=== PATIENT | male | born 1955 | race Caucasian/White ===

== ENCOUNTER 2018-03-14 22:19 | Emergency (ER) | payer MEDICAID ==
[~2018-03-14] VITALS: Ht 172.7 cm; Wt 72.6 kg
[2018-03-14 22:19] VITALS: BP 132/78
--- NOTE | 2018-03-14 22:19 | NUR ---
MAUDE MASON. TAKEN TO BED 1
--- NOTE | 2018-03-14 22:33 | NUR ---
PSYCH ASSESSMENT Per patient report Patient non compliant with psych medications for bipolar disorder for 6 months due to him being unable to afford medication. Patient does not admit to having thoughts of hurting himself or others. Patient alert and oriented x 4 however he states that he has on and off auditory and visual hallucinations. Auditory hallucinations consist of him hearing random voices. Visual hallucinations consist of him seeing crosses and swastickas. Patient admits hallucinations worsened after his left him 2 days ago.
--- NOTE | 2018-03-14 22:36 | NUR ---
Patient given orange juice
--- NOTE | 2018-03-14 23:20 | NUR ---
Patient in no acute distress on stretcher on monitor. Will continue to monitor closely.
--- NOTE | 2018-03-15 01:57 | NUR ---
Patient in no acute distress, on stretcher on monitor. No identified requests. Will continue to monitor closely.
--- NOTE | 2018-03-15 03:16 | NUR ---
Patient asleep on stretcher in no acute distress, no identified requests.
--- NOTE | 2018-03-15 04:15 | NUR ---
Patient in room asleep on stretcher in no acute distress, no identified requests.
[2018-03-15 06:11] VITALS: BP 130/60
--- NOTE | 2018-03-15 06:12 | NUR ---
Patient discharged with v/s stable. Written and verbal after care instructions given and explained. Patient alert, oriented and verbalized understanding of instructions. Ambulatory with steady gait. All questions addressed prior to discharge. ID band removed. Patient advised to follow up with PMD. Rx of SEROQUEL given. Patient educated on indication of medication including possible reaction and side effects. Opportunity to ask questions provided and answered.
== END 2018-03-15 06:12 | disposition home or self-care (01) ==
LOC: MED 22:19
DX: R44.0 Auditory hallucinations (principal); R44.1 Visual hallucinations; J44.9 Chronic obstructive pulmonary disease, unspecified
CPT/HCPCS: 99283

== ENCOUNTER 2018-04-17 15:32 | Emergency (ER) | payer MEDICAID ==
[~2018-04-17] VITALS: Ht 185.4 cm; Wt 82.6 kg
--- NOTE | 2018-04-17 15:39 | NUR ---
PT RIMA MASON AND SENT TO LOBBY
--- NOTE | 2018-04-17 15:45 | NUR ---
62 BIBA REQUESTING MEDICATION REFILL FOR SEROQUEL 50MG HS, LAMICTAL 200MG QD. PT DENIES ANY HI OR SI IDEATION. PT IS AOX4 BUT HYPERVERBAL. PT ALSO REPORTS OF 1ST DIGIT ON RIGHT FOOT PAIN. PT STS HE "HIT IT ON SOME HARD SHIT". RR ARE EVEN AND UNLABORED. VSS. AWAITING ER MD CORNELL. WILL CONTINUE TO MONITOR.
[2018-04-17 16:01] VITALS: BP 128/57
--- NOTE | 2018-04-17 16:30 | NUR ---
PATIENT STS "YOU GUYS ARE NOT GOING TO SEE ME, I HAVE TO GO WORK AT [employer] IN [place]"; INFORMED PATIENT ER MD DOCTOR WILL BE ABLE TO SEE HIM SOON HE CAN BUT ER MD AWARE OF PT. PT EXITED ER TO LOBBY WITH STEADY GAIT. ER MD RIVERA AND TURNER CHILDS RN MADE AWARE.
--- NOTE | 2018-04-17 16:30 | NUR ---
PT ELPD FROM FACILITY
== END 2018-04-17 16:30 | disposition left against medical advice (07) ==
LOC: MED 15:32
DX: Z76.0 Encounter for issue of repeat prescription (principal); Z53.21 Procedure and treatment not carried out due to patient leaving prior to being seen by health care provider

== ENCOUNTER 2018-05-28 22:55 | Emergency (ER) | payer SELFPAY ==
[~2018-05-28] VITALS: Ht 185.4 cm; Wt 82.6 kg
[2018-05-28 23:09] VITALS: BP 148/86
[2018-05-29] MEDS ORDERED: ARIPiprazole 10 MG TAB ONE (03:26)
[2018-05-29] MEDS ORDERED: ARIPiprazole 10 MG TAB PO ONE (03:55)
[2018-05-29 04:00] VITALS: BP 148/86
[2018-05-29] MEDS ORDERED: ONDANSETRON 4 MG ODT ONE (05:29)
[2018-05-29] MEDS ORDERED: ARIPiprazole 10 MG TAB PO SCH (09:00)
== END 2018-05-29 04:00 | disposition home or self-care (01) ==
LOC: MED 22:55
DX: R44.1 Visual hallucinations (principal); R44.0 Auditory hallucinations; Z88.0 Allergy status to penicillin; F17.210 Nicotine dependence, cigarettes, uncomplicated
CPT/HCPCS: 99282; S0119

== ENCOUNTER 2018-09-18 21:18 | Inpatient (IN) | payer SELFPAY ==
[~2018-09-18] VITALS: Ht 185.4 cm; Wt 77.1 kg
--- NOTE | 2018-09-18 21:18 | NUR ---
PT RIMA BLS. TAKEN TO BED 5
[2018-09-18 21:20] VITALS: BP 166/91
--- NOTE | 2018-09-18 21:35 | NUR ---
[place] [employer] AT BEDSIDE FOR 5150 HOLD.
--- NOTE | 2018-09-18 21:45 | NUR ---
PT AMBULATED TO BATHROOM EVEN STEADY GAIT, TO PROVIDE URINE SAMPLE
--- NOTE | 2018-09-18 22:02 | NUR ---
Dr. Ramírez evaluating patient at bedside.
--- NOTE | 2018-09-18 22:27 | NUR ---
PT IN BED SLEEPING, VSS.
--- NOTE | 2018-09-18 22:50 | NUR ---
LAB AT BEDSIDE
[2018-09-18 23:10] LABS: BASOPHILS % (AUTO) 0.5 % (0.0-2.0); EOSINOPHILS # (AUTO) 0.2 K/uL (0-0.4); EOSINOPHILS % (AUTO) 3.5 % (0.0-4.0); HEMATOCRIT 37.6 % (36-52); HEMOGLOBIN 12.4 g/dL (12.0-18.0); LYMPHOCYTES # (AUTO) 1.9 K/uL (2.0-11.5); LYMPHOCYTES % (AUTO) 30.1 % (20.5-51.1); MEAN CORPUSCULAR HEMOGLOBIN 29 pg (27-31); MEAN CORPUSCULAR HGB CONC 33 g/dL (33-37); MONOCYTES # (AUTO) 0.6 K/uL (0.8-1.0); NEUTROPHILS # (AUTO) 3.6 K/uL (1.8-7.7); NEUTROPHILS % (AUTO) 56.9 % (42.2-75.2); PLATELET COUNT (AUTO) 245 K/uL (140-450); RED BLOOD CELL COUNT(AUTO) 4.32 MIL/uL (4.20-6.10); RED CELL DISTRIBUTION WIDTH 15.9 % (11.6-13.7); WHITE BLOOD COUNT (AUTO) 6.3 K/uL (4.8-10.8)
[2018-09-18 23:15] LABS: ANION GAP 9.7 (8-16); CARBON DIOXIDE 29.9 mmol/L (21-32); CHLORIDE 103 mmol/L (98-107); CREATININE 0.9 mg/dL (0.7-1.3); GFR ARICAN-AMERICAN 111 mL/min (>90); GLUCOSE 95 mg/dL (74-106); POTASSIUM 3.6 mmol/L (3.5-5.1); SODIUM SERUM 139 mmol/L (136-145); UREA NITROGEN, BLOOD 13 mg/dL (7-18)
[2018-09-18 23:20] LABS: ALBUMIN 3.4 g/dL (3.4-5.0); ASPARTATE AMINOTRANSFERASE 23 U/L (15-37); SALICYLATE 2.8 mg/dL (2.8-20.0); TOTAL BILIRUBIN 1.4 mg/dL (0.0-1.0)
[2018-09-18 23:23] LABS: ACETAMINOPHEN < 0.5 ug/ml (10-30)
[2018-09-18 23:24] LABS: APPEARANCE,URINE CLEAR (CLEAR); BILIRUBIN,URINE NEGATIVE (NEGATIVE); BLOOD, URINE NEGATIVE (NEGATIVE); COLOR,URINE YELLOW (YELLOW); LEUKOCYTE ESTERASE ,URINE NEGATIVE (NEGATIVE); NITRITE, URINE NEGATIVE (NEGATIVE); PH,URINE 6.5 (5.0-9.0); UGLUCOSE NEGATIVE (NEGATIVE)
--- NOTE | 2018-09-19 00:14 | NUR ---
TELEPSYCH INTITIATED PER DR. CASILLAS.
--- NOTE | 2018-09-19 00:48 | NUR ---
RETURN CALL FROM TELEPSYCH, DR. MCKEON, WHO SPOKE WITH AMRIT MONAHAN Addendum: 09/19/18 at [address] FLORES
--- NOTE | 2018-09-19 00:50 | NUR ---
TELEPSYCH, DR. FLORES, SPEAKING TO PATIENT VIA REMOTE COMMUNICATION
--- NOTE | 2018-09-19 00:50 | NUR ---
SPOKE WITH DR. MCKEON REGARDING PT'S STATUS. STATED HE WILL SPEAK WITH PT. Addendum: 09/19/18 [address] FLORES
--- NOTE | 2018-09-19 00:59 | NUR ---
DR. FLORES RECOMENDS IN PT OBSERVATION AND STABILIZATION AT THIS TIME.
--- NOTE | 2018-09-19 01:00 | NUR ---
PT LAYING IN BED SLEEPING, VSS.
--- NOTE | 2018-09-19 02:35 | NUR ---
PT LAYING IN BED, [place]OUS[place] TO ENVIRONMENTAL STIMULI, WILL CONTINUE TO MONITOR.
--- NOTE | 2018-09-19 03:35 | NUR ---
Packet faxed to the following designated facilities [facility]- [facility]- [facility] intake [facility]- [facility] intake [facility]- [facility] intake At this time there are no vacancy , Eduar ocampo made aware.
[2018-09-19] MEDS: NACL 0.9% 1,000 ML IV SCH ×2 (03:49→20:06)
[2018-09-19] MEDS ORDERED: ACETAMINOPHEN 325 MG TAB PO PRN (03:50)
[2018-09-19] MEDS ORDERED: DOCUSATE SODIUM 100 MG GELCAP PO PRN (03:50)
[2018-09-19] MEDS ORDERED: HYDROcodone/APAP 5/325 MG 1 TAB TAB PO PRN (03:50)
[2018-09-19] MEDS ORDERED: LORazepam 2 MG/ML VIAL IM/IVP PRN (03:50)
[2018-09-19] MEDS ORDERED: ONDANSETRON 4 MG/2 ML VIAL IM/IVP PRN (03:50)
[2018-09-19] MEDS ORDERED: ZOLPIDEM 5 MG TAB PO PRN (03:50)
--- NOTE | 2018-09-19 04:00 | NUR ---
Dr. Phelan evaluating patient at bedside.
--- NOTE | 2018-09-19 04:15 | NUR ---
RECEIVED REPORT FROM CHIEF TECHNICIANAMRIT HAWKINS FOR CONTINUITY OF CARE. PT IS A/OX4, ON ROOM AIR. PT AMBULATES WITH STEADY GAIT, AND SKIN IS PINK/WARM/DRY AND INTACT. PT IS ABLE TO MAKE NEEDS KNOWN, AND ABLE TO FOLLOW COMMANDS. LUNGS SOUNDS DIMINISHED, HR EVEN AND REGULAR. PT HAS 18G IV TO RIGHT FOREARM, ASYMPTOMATIC AND INTACT. PT DENIES STATES PAIN OF 0/10 AT THIS TIME. VITAL SIGNS STABLE. PT POSITIONED FOR COMFORT. 1:1 SITTER IN ROOM. BED RAILS UP X2, BED IN LOWEST POSITION. WILL CONTINUE TO MONITOR.
--- NOTE | 2018-09-19 04:22 | NUR ---
Patient will be admitted to care of DR SHANNON. Admited to TELE. Will go to room 109-B. Belongings list completed. Report to AMRIT WHALEN.
[2018-09-19] MEDS ORDERED: ALBUTEROL SULFATE/IPRATROPIU 3 ML SOL IH PRN (04:45)
[2018-09-19 04:50] LABS: BARBITURATE, URINE NEG. ng/ml (NEG <=200); BENZODIAZEPINE, URINE NEG. ng/mL (NEG <=200); CANNABINOID, URINE NEG. ng/mL (NEG <=50); COCAINE, URINE NEG. ng/mL (NEG <=300); OPIATE, URINE NEG. ng/mL (NEG <=2000); PHENCYCLIDINE SCREEN,URINE NEG. ng/mL (NEG <=25)
[2018-09-19 04:52] LABS: PROTHROMBIN TIME 9.8 secs (10.8-13.4)
[2018-09-19 04:55] VITALS: BP 143/88
[2018-09-19 05:02] LABS: CHOL/HDL RATIO 3.8 (1-4.5); MAGNESIUM 2.1 mg/dL (1.8-2.4); PHOSPHORUS 3.5 mg/dL (2.5-4.9); THYROID STIMULATING HORMONE 4.11 uIU/mL (0.34-3.74)
[2018-09-19 05:57] LABS: BASOPHILS % (AUTO) 0.6 % (0.0-2.0); EOSINOPHILS # (AUTO) 0.2 K/uL (0-0.4); EOSINOPHILS % (AUTO) 3.7 % (0.0-4.0); HEMATOCRIT 38.1 % (36-52); HEMOGLOBIN 12.6 g/dL (12.0-18.0); LYMPHOCYTES # (AUTO) 1.6 K/uL (2.0-11.5); LYMPHOCYTES % (AUTO) 32.5 % (20.5-51.1); MEAN CORPUSCULAR HEMOGLOBIN 29 pg (27-31); MEAN CORPUSCULAR HGB CONC 33 g/dL (33-37); MEAN CORPUSCULAR VOLUME 86.2 fL (80-94); MONOCYTES # (AUTO) 0.5 K/uL (0.8-1.0); MONOCYTES % (AUTO) 10.8 % (1.7-9.3); NEUTROPHILS # (AUTO) 2.5 K/uL (1.8-7.7); NEUTROPHILS % (AUTO) 52.4 % (42.2-75.2); PLATELET COUNT (AUTO) 240 K/uL (140-450); RED BLOOD CELL COUNT(AUTO) 4.42 MIL/uL (4.20-6.10); RED CELL DISTRIBUTION WIDTH 15.7 % (11.6-13.7); WHITE BLOOD COUNT (AUTO) 4.9 K/uL (4.8-10.8)
--- NOTE | 2018-09-19 06:30 | NUR ---
NO SIGNS OF DISTRESS NOTED. PT STABLE. 1:1 SITTER IN ROOM. BED RAILS UP X2, BED IN LOWEST POSITION. WILL CONTINUE TO MONITOR.
[2018-09-19 07:02] LABS: MAGNESIUM 1.9 mg/dL (1.8-2.4); PHOSPHORUS 3.4 mg/dL (2.5-4.9)
[2018-09-19 07:03] LABS: ANION GAP 11.8 (8-16); CARBON DIOXIDE 28.5 mmol/L (21-32); POTASSIUM 3.3 mmol/L (3.5-5.1)
--- NOTE | 2018-09-19 07:10 | NUR ---
RECEIVED BEDSIDE REPORT FROM PM SHIFT NURSE. PT ASLEEP IN BED, RESPIRATIONS EVEN & UNLABORED, FLACC 0. 1:1 SITTER AT BEDSIDE FOR SAFETY MONITORING.
--- NOTE | 2018-09-19 07:14 | NUR ---
ENDORSED PT TO DAY SHIFT RN BARYL FOR CONTINUITY OF CARE. PT IN STABLE CONDITION.
--- NOTE | 2018-09-19 07:24 | NUR ---
RECEIVED PATIENT ON ROOM AIR, O2 SAT 97%. PATIENT DENIES SOB. NO RESPIRATORY DISTRESS NOTED AT THIS TIME. WILL CONTINUE TO MONITOR.
[2018-09-19 08:00] VITALS: BP 159/89
[2018-09-19] MEDS ORDERED: LISINOPRIL 5 MG TAB PO SCH (09:00)
[2018-09-19] MEDS: ARIPiprazole 10 MG TAB PO SCH (09:12)
--- NOTE | 2018-09-19 09:15 | NUR ---
PT LYING IN BED, AWAKE, VERBALLY RESPONSIVE. NO C/O PAIN. RESPIRATIONS EVEN & UNLABORED. ASKED PT IF HE IS HAVING SUICIDAL IDEATIONS. PT REPLIES "I DON'T WANT TO TALK ABOUT IT." 1:1 SITTER AT BEDSIDE FOR CONTINUOUS MONITORING.
--- NOTE | 2018-09-19 10:15 | NUR ---
PT GOT OUT OF ROOM, ASKING TO WEAR HIS REGULAR CLOTHES & GO OUT TO SMOKE. EXPLAINED 5150 HOLD PROTOCOL & NO SMOKING POLICY. PT VERBALIZED UNDERSTANDING & RETURNED TO HIS ROOM. DR PAYNE AT UNIT STATION AWARE & WILL PLACE ORDER FOR NICOTINE PATCH. PT AWARE & AGREE WITH POC. 1:1 SITTER AT BEDSIDE FOR SAFETY MONITORING. Addendum: 09/19/18 at 1139 by Jenn Shah RN ADDENDUM: ENCOURAGED PT TO WEAR CONCRETE CURER. EXPLAINED BENEFITS OF CONTINUOUS CARDIAC MONITORING. PT CONT TO REFUSE. DR LORENZO.
[2018-09-19] MEDS ORDERED: NICOTINE TRANSD SYS 21 MG/24 HR PATCH TD SCH (10:27)
[2018-09-19 12:00] VITALS: BP 158/70
--- NOTE | 2018-09-19 12:10 | NUR ---
PT SITTING UP IN BED, EATING BREAKFAST. NO C/O PAIN. RESPIRATIONS EVEN & UNLABORED. 1:1SITTER AT BEDSIDE.
--- NOTE | 2018-09-19 14:30 | NUR ---
PT STEPPED OUTSIDE ROOM, YELLING THAT HE WANTS TO LEAVE AMA. EXPLAINED REASON FOR 5150 HOLD, & THAT HE WILL NEED TO BE SEEN BY PSYCHIATRIST. PT CALMED DOWN & RETURNED TO HIS BED. 1:1 SITTER AT BEDSIDE.
[2018-09-19] MEDS ORDERED: POTASSIUM CHLORIDE 10 MEQ TABER PO SCH (15:15)
[2018-09-19 16:00] VITALS: BP 159/89
--- NOTE | 2018-09-19 16:26 | NUR ---
PT SITTING IN BED, QUIETLY READING BOOK. FLACC 0. 1:1 SITTER AT BEDSIDE.
--- NOTE | 2018-09-19 17:10 | NUR ---
PT REQUESTING TO DC IV ACCESS, STATES HE DOESN'T WANT ANYTHING IV. EXPLAINED BENEFITS OF READY IV ACCESS. PT CONT TO INSIST TO DC IV ACCESS. RIGHT FA IV DISCONTINUED.
--- NOTE | 2018-09-19 17:20 | NUR ---
DR VILLAVICENCIO IN UNIT TO SEE PT.
--- NOTE | 2018-09-19 19:25 | NUR ---
REPORT GIVEN TO PM SHIFT NURSE
--- NOTE | 2018-09-19 19:26 | NUR ---
RECEIVED REPORT FROM DAY SHIFT RN VIC FOR CONTINUITY OF CARE. PT IS A/OX4, ON ROOM AIR. PT AMBULATES WITH STEADY GAIT, AND SKIN IS PINK/WARM/DRY AND INTACT. PT IS ABLE TO MAKE NEEDS KNOWN, AND ABLE TO FOLLOW COMMANDS. LUNGS SOUNDS DIMINISHED, HR EVEN AND REGULAR. PT HAS 18G IV TO RIGHT FOREARM, ASYMPTOMATIC AND INTACT. PT DENIES STATES PAIN OF 0/10 AT THIS TIME. VITAL SIGNS STABLE. NO SIGNS OF DISTRESS NOTED. PT POSITIONED FOR COMFORT. 1:1 SITTER IN ROOM. BED RAILS UP X2, BED IN LOWEST POSITION. WILL CONTINUE TO MONITOR.
[2018-09-19 20:00] VITALS: BP 143/84
--- NOTE | 2018-09-19 21:15 | NUR ---
PT REQUESTED "SLEEPING PILL" BECAUSE HE CAN'T SLEEP. ADMINISTERED AMBIEN ORDERED, PT TOLERATED WELL.
[2018-09-20] VITALS: BP 155/93
--- NOTE | 2018-09-20 | NUR ---
VITAL SIGNS STABLE. NO SIGNS OF DISTRESS NOTED. PT POSITIONED FOR COMFORT. BED RAILS UP X2, BED IN LOWEST POSITION. CALL LIGHT WITHIN REACH. WILL CONTINUE TO MONITOR.
--- NOTE | 2018-09-20 05:48 | NUR ---
PATIENT HAS BEEN SCREENED AND CATEGORIZED HIGH NUTRITION RISK. PATIENT WILL BE SEEN WITHIN 1-2 DAYS OF ADMISSION. 09/19/18-09/20/18 TAYO GOMEZ MS, RDN
--- NOTE | 2018-09-20 07:20 | NUR ---
ENDORSED PT TO DAY SHIFT AMRIT SIMON FOR CONTINUITY OF CARE. PT IN STABLE CONDITION. Addendum: 09/20/18 at 0723 by Slime Santos RN AMRIT SIMON.
--- NOTE | 2018-09-20 07:30 | NUR ---
PATIENT WAS AWAKE, ALERT. RESPIRATION EVEN, UNLABOR ON ROOM AIR. SKIN DRY AND WARM. NO IV ACCESS AT THIS TIME. DENIED PAIN, SUICIDAL THOUGHT, OR HALLUCINATION. PLAN OF CARE WAS DISCUSSED WITH PATIENT. BED AT LOW POSITION, SIDE RAILS UP. 1:1 SITTER ENSURED
[2018-09-20 08:00] VITALS: BP 155/82
[2018-09-20] MEDS ORDERED: NICOTINE TRANSD SYS 21 MG/24 HR PATCH TD SCH (09:00)
[2018-09-20] MEDS ORDERED: LISINOPRIL 5 MG TAB PO SCH (09:00)
[2018-09-20] MEDS: ARIPiprazole 10 MG TAB PO SCH (09:01)
[2018-09-20] MEDS: IBUPROFEN 600 MG TAB PO PRN ×2 (09:11→15:37)
--- NOTE | 2018-09-20 09:48 | NUR ---
09/20/18 RD INITIAL ASSESSMENT COMPLETED PLEASE REFER TO NUTRITION ASSESSMENT UNDER CARE ACTIVITY FOR ESTIMATED NUTRITIONAL NEEDS. RD RECOMMENDATIONS: 1. CONTINUE ON REGULAR DIET TOLERATED. 2. RD WILL F/U 5-7 DAYS; LOW RISK. TAYO GOMEZ MS, RDN
--- NOTE | 2018-09-20 10:00 | NUR ---
PATIENT AWAKE, ALERT. RESPIRATION EVEN, UNLABOR ON ROOM AIR. NO DISTRESS NOTED AT THIS TIME
--- NOTE | 2018-09-20 12:19 | NUR ---
PATIENT AWAKE, ALERT. RESPIRATION EVEN, UNLABOR ON ROOM AIR. NO DISTRESS NOTED AT THIS TIME
--- NOTE | 2018-09-20 14:09 | NUR ---
PATIENT IS SLEEPING COMFORTABLY. RESPIRATION EVEN, UNLABOR ON ROOM AIR. NO DISTRESS NOTED AT THIS TIME
--- NOTE | 2018-09-20 15:30 | NUR ---
DISCHARGE INSTRUCTION WAS GIVEN AND EXPLAINED TO THE PATIENT. PATIENT VERBALIZED UNDERSTANDING. PATIENT REFUSED VACCINATION. BUS PASS WAS GIVEN. AL BELONGINGS WERE TAKEN WITH THE PATIENT. PATIENT WAS ESCORTED OUT BY STAFF, AMBULATORY WITH STEADY GAIT. PATIENT IS STABLE AT THIS TIME
== END 2018-09-20 16:10 | disposition home or self-care (01) | DRG 917 ==
LOC: MED 21:18 → MTU 09-19 03:53
PROVIDERS: ADMIT General Practice; ATTEND General Practice
DX: T50.902A Poisoning by unspecified drugs, medicaments and biological substances, intentional self-harm, initial encounter (principal); G92 Toxic encephalopathy; R45.851 Suicidal ideations; K76.0 Fatty (change of) liver, not elsewhere classified; F32.9 Major depressive disorder, single episode, unspecified; F19.10 Other psychoactive substance abuse, uncomplicated; F17.210 Nicotine dependence, cigarettes, uncomplicated; I10 Essential (primary) hypertension; E87.6 Hypokalemia; E80.6 Other disorders of bilirubin metabolism; K80.20 Calculus of gallbladder without cholecystitis without obstruction; G40.909 Epilepsy, unspecified, not intractable, without status epilepticus; E02 Subclinical iodine-deficiency hypothyroidism; Z59.0 Homelessness; Z88.0 Allergy status to penicillin; Y92.89 Other specified places as the place of occurrence of the external cause
CPT/HCPCS: 36415; 76705; 80048; 80053; 80305; 81003; 83036; 83690; 83735; 84100; 84134; 84443; 85025; 85610; 85730; 87081; 93005; 99285; G0480; G0482; J7030; Q0092

== ENCOUNTER 2018-10-16 00:45 | Emergency (ER) | payer SELFPAY ==
[~2018-10-16] VITALS: Ht 185.4 cm; Wt 81.2 kg
[2018-10-16 00:45] VITALS: BP 154/82
--- NOTE | 2018-10-16 00:45 | NUR ---
PT RIMA BLS. TAKEN TO BED 5
--- NOTE | 2018-10-16 00:45 | NUR ---
BIB EMS. PT PRESENTS TO ED WITH BILAT FOOT PAIN, CHRONIC, 06/06. VSS. A&OX4. POSITIONED IN BED FOR COMFORT. ER MD AWARE. CONTINUE TO MONITOR.
--- NOTE | 2018-10-16 01:13 | NUR ---
Dr. Resendiz evaluating patient at bedside.
[2018-10-16] MEDS ORDERED: IBUPROFEN 800 MG TAB PO ONE (01:20)
[2018-10-16] MEDS ORDERED: NACL 0.9% 1,000 ML IV ONE (01:20)
[2018-10-16 01:48] LABS: BASOPHILS % (AUTO) 0.4 % (0.0-2.0); EOSINOPHILS # (AUTO) 0.2 K/uL (0-0.4); HEMATOCRIT 39.5 % (36-52); HEMOGLOBIN 12.8 g/dL (12.0-18.0); LYMPHOCYTES # (AUTO) 1.9 K/uL (2.0-11.5); LYMPHOCYTES % (AUTO) 33.2 % (20.5-51.1); MEAN CORPUSCULAR HEMOGLOBIN 29 pg (27-31); MEAN CORPUSCULAR HGB CONC 33 g/dL (33-37); MEAN CORPUSCULAR VOLUME 87.7 fL (80-94); MONOCYTES # (AUTO) 0.5 K/uL (0.8-1.0); MONOCYTES % (AUTO) 8.3 % (1.7-9.3); NEUTROPHILS # (AUTO) 3.1 K/uL (1.8-7.7); NEUTROPHILS % (AUTO) 54.1 % (42.2-75.2); PLATELET COUNT (AUTO) 236 K/uL (140-450); RED BLOOD CELL COUNT(AUTO) 4.51 MIL/uL (4.20-6.10); RED CELL DISTRIBUTION WIDTH 15.2 % (11.6-13.7); WHITE BLOOD COUNT (AUTO) 5.7 K/uL (4.8-10.8)
[2018-10-16 02:03] LABS: ACETAMINOPHEN < 0.5 ug/ml (10-30); ALBUMIN 3.5 g/dL (3.4-5.0); ANION GAP 12.1 (8-16); ASPARTATE AMINOTRANSFERASE 24 U/L (15-37); CARBON DIOXIDE 28.3 mmol/L (21-32); CHLORIDE 103 mmol/L (98-107); CREATININE 0.9 mg/dL (0.7-1.3); GFR ARICAN-AMERICAN 110 mL/min (>90); GLUCOSE 136 mg/dL (74-106); POTASSIUM 3.4 mmol/L (3.5-5.1); SALICYLATE 3.1 mg/dL (2.8-20.0); SODIUM SERUM 140 mmol/L (136-145); TOTAL BILIRUBIN 0.7 mg/dL (0.0-1.0); UREA NITROGEN, BLOOD 16 mg/dL (7-18)
--- NOTE | 2018-10-16 02:07 | NUR ---
PT REFUSED IV AND IV FLUIDS AT THIS TIME STATES "I CAN DRINK WATER, IM NOT HERE FOR HEART FAILURE" PT REQUESTS "SNACKS AND A SANDWICH" .
[2018-10-16 02:14] LABS: BARBITURATE, URINE NEG. ng/ml (NEG <=200); BENZODIAZEPINE, URINE NEG. ng/mL (NEG <=200); CANNABINOID, URINE POS. ng/mL (NEG <=50); COCAINE, URINE NEG. ng/mL (NEG <=300); OPIATE, URINE NEG. ng/mL (NEG <=2000); PHENCYCLIDINE SCREEN,URINE NEG. ng/mL (NEG <=25)
--- NOTE | 2018-10-16 02:25 | NUR ---
PATIENT REFUSED JAMAR SPLINT, AND RN MADE AWARE
[2018-10-16 02:35] VITALS: BP 154/82
== END 2018-10-16 02:35 | disposition home or self-care (01) ==
LOC: MED 00:45
DX: S92.514A Nondisplaced fracture of proximal phalanx of right lesser toe(s), initial encounter for closed fracture (principal); R03.0 Elevated blood-pressure reading, without diagnosis of hypertension; Z88.0 Allergy status to penicillin; Z91.018 Allergy to other foods; W19.XXXA Unspecified fall, initial encounter; Y93.89 Activity, other specified; Y92.89 Other specified places as the place of occurrence of the external cause; Y99.8 Other external cause status
CPT/HCPCS: 36415; 73660; 80053; 80305; 81002; 85025; 93005; 99284; G0480; G0482; Q0092

== ENCOUNTER 2018-12-06 00:22 | Emergency (ER) | payer SELFPAY ==
[~2018-12-06] VITALS: Ht 185.4 cm; Wt 84.4 kg
--- NOTE | 2018-12-06 00:28 | NUR ---
Patient BIBA BLS, transferred to bed 3. RN evaluating patient at bedside.
[2018-12-06 00:30] VITALS: BP 173/90
--- NOTE | 2018-12-06 00:30 | NUR ---
PATIENT PRESENTS TO ED WITH C/O PAIN TO THE RIGHT WRIST X 2 WEEKS. PT STATED HE FELL. PT DENIES LOC POST FALL. PT HAS SOME SWELLING AND REDNESS TO SIGHT. SKIN IS PINK/WARM/DRY; AAOX4. PATIENT STATES PAIN OF 7/10 AT THIS TIME; VSS; PATIENT POSITIONED FOR COMFORT; HOB ELEVATED; BEDRAILS UP X2; BED DOWN. ER MD MADE AWARE OF PT STATUS. PT ALLERGIES TO PENICILLIN
--- NOTE | 2018-12-06 00:39 | NUR ---
Dr. Colin evaluating patient at bedside.
[2018-12-06] MEDS ORDERED: KETOROLAC 60 MG/2 ML VIAL IM ONE (00:45)
--- NOTE | 2018-12-06 01:01 | NUR ---
principal technologist at bedside.
--- NOTE | 2018-12-06 01:25 | NUR ---
ULNAR GUTTER SPLINT ON RIGHT ARM USING ORTHO GLASS 4 APPLIED BY CARLENE SOLANO
[2018-12-06 01:43] VITALS: BP 165/89
--- NOTE | 2018-12-06 01:43 | NUR ---
Patient discharged with v/s stable. Written and verbal after care instructions given and explained. Patient alert, oriented and verbalized understanding of instructions. Ambulatory with steady gait. All questions addressed prior to discharge. ID band removed. Patient advised to follow up with PMD. Rx of [place] given. Patient educated on indication of medication including possible reaction and side effects. Opportunity to ask questions provided and answered.
--- NOTE | 2018-12-06 01:55 | NUR ---
BUS VOUCHER PROVIDED TO PT, PT STATES HE WILL WAIT IN THE LOBBY UNTIL THE MORNING.
== END 2018-12-06 01:43 | disposition home or self-care (01) ==
LOC: MED 00:22
DX: S52.501A Unspecified fracture of the lower end of right radius, initial encounter for closed fracture (principal); S52.601A Unspecified fracture of lower end of right ulna, initial encounter for closed fracture; I10 Essential (primary) hypertension; F31.9 Bipolar disorder, unspecified; F17.210 Nicotine dependence, cigarettes, uncomplicated; F12.10 Cannabis abuse, uncomplicated; F19.10 Other psychoactive substance abuse, uncomplicated; Z88.0 Allergy status to penicillin; Z91.011 Allergy to milk products; Z88.8 Allergy status to other drugs, medicaments and biological substances; W18.39XA Other fall on same level, initial encounter; Y93.89 Activity, other specified; Y92.89 Other specified places as the place of occurrence of the external cause; Y99.8 Other external cause status
CPT/HCPCS: 29125; 73110; 96372; 99283; J1885; Q0092

== ENCOUNTER 2019-02-21 02:27 | Emergency (ER) | payer SELFPAY ==
[~2019-02-21] VITALS: Ht 185.4 cm; Wt 83.5 kg
[2019-02-21 02:30] VITALS: BP 141/80
--- NOTE | 2019-02-21 02:30 | NUR ---
TO BED # 09 AMBULATORY
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
--- NOTE | 2019-02-21 03:06 | NUR ---
DR. PALMA EVALUATING PT
--- NOTE | 2019-02-21 03:19 | NUR ---
Patient discharged with v/s stable. Written and verbal after care instructions given and explained. Patient alert, oriented and verbalized understanding of instructions. Ambulatory with steady gait. All questions addressed prior to discharge. ID band removed. Patient advised to follow up with PMD. Rx of [place] and Narcan given. Patient educated on indication of medication including possible reaction and side effects. Opportunity to ask questions provided and answered.
== END 2019-02-21 03:19 | disposition home or self-care (01) ==
LOC: MED 02:27
DX: K08.89 Other specified disorders of teeth and supporting structures (principal); M25.531 Pain in right wrist; G89.29 Other chronic pain; I10 Essential (primary) hypertension; Z88.0 Allergy status to penicillin; Z91.018 Allergy to other foods
CPT/HCPCS: 73110; 99283; Q0092

== ENCOUNTER 2019-04-27 00:57 | Emergency (ER) | payer SELFPAY ==
[~2019-04-27] VITALS: Ht 185.4 cm; Wt 86.2 kg
[2019-04-27 01:17] VITALS: BP 160/90
--- NOTE | 2019-04-27 01:17 | NUR ---
TO BED # 09 AMBULATORY
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
--- NOTE | 2019-04-27 01:38 | NUR ---
Dr. Valero examining patient.
--- NOTE | 2019-04-27 02:13 | NUR ---
PT IS HOMELESS, PT PROVIDED WITH SANDWICH AND JUICE, PT WITH APPROPRIATE CLOTHING FOR WEATHER. HOMELESS RESOURCE PACKET AND HOMELESS WAIVER FORM SIGNED. ALCOHOL/SUBSTANCE ABUSE PACKET PROVIDED.
[2019-04-27 04:46] VITALS: BP 150/101
== END 2019-04-27 04:46 | disposition home or self-care (01) ==
LOC: MED 00:57
DX: S61.551A Open bite of right wrist, initial encounter (principal); F20.9 Schizophrenia, unspecified; I10 Essential (primary) hypertension; Z88.0 Allergy status to penicillin; Z91.018 Allergy to other foods; W55.01XA Bitten by cat, initial encounter; Y93.89 Activity, other specified; Y92.89 Other specified places as the place of occurrence of the external cause; Y99.8 Other external cause status
CPT/HCPCS: 99283